=== PATIENT | male | born 1955 | race Caucasian/White ===

== ENCOUNTER → 2022-08-22 09:32 | Outpatient (BNVA) | payer MEDICARE, OTHER, SELFPAY | PROVIDERS: PCP Internal Medicine; Visit Provider Orthopaedic Surgery | DX: M75.42 Impingement syndrome of left shoulder (principal) | CPT/HCPCS: 99212 ==

== ENCOUNTER 2022-10-22 09:36 | Outpatient (AMB) | payer MEDICARE, OTHER, SELFPAY ==
--- NOTE | 2022-10-22 09:45 | MHC.OFFVIS ---
Intake Vital Signs 10/22/22 09:49 Height 6 ft Weight 225 lb BMI 30.5 Intake Visit Reasons: OV LT shld, dis cla exc, AC RTC 10/25/22DR Intake Note: Kirill is a 66 year old male who presents with complaints of progressively worsening left shoulder pain and weakness. He did undergo right shoulder surgery in 2014. He denies any pain in his right shoulder. He did injure his left shoulder several years ago while lifting a heavy object. Since that time his symptoms have gotten worse in spite of continued non operative treatments. He has done physical therapy for 12 weeks over the last 6 months which aggravated his pain. He has also tried Tylenol and anti-inflammatory medicines which gave him minimal relief. He has had multiple injections. The most recent injection gave him only temporary relief. The patient reports weakness when lifting his left hand above shoulder height. Allergies No Known Allergies Allergy (Verified 10/22/22 09:56) Medication List - Last Reconciled 10/22/22 by Kayden Reynaga MD hydromorphone 4 mg (2 x 2 mg) PO Q4H PRN PFSH Social History Current occupational status: retired Current occupation: rt hand Physical Exam Vital Signs: BMI result Body Mass Index 30.5 Const Other: Well-nourished well-developed very friendly male awake alert and oriented x3 in no acute distress Lungs clear to auscultation bilaterally with symmetric expansion Cardiovascular exam regular rate and rhythm Abdominal exam is soft nontender nondistended Extrem Other: Bilateral upper extremity examination shows good capillary refill, no skin lesions noted, normal sensation light touch Left shoulder examination shows decreased range of motion when compared to his right shoulder, 4+ out of 5 strength with supraspinatus testing, positive impingement signs, tenderness over his acromioclavicular joint, no instability Results Reviewed Results Reviewed: X-rays of the patient's left shoulder show severe acromioclavicular joint narrowing, a type 3 acromion, no acute bony abnormalities MRI of the patient's left shoulder show severe acromioclavicular joint narrowing, type 3 acromion, signal change within the supraspinatus tendon most likely due to rotator cuff tendinosis versus a small rotator cuff tear Assessment & Plan Assessment & Plan (1) Impingement syndrome of left shoulder: Code(s): M75.42 - Impingement syndrome of left shoulder Plan Mr. Moreira presents with progressively worsening left shoulder pain and weakness due to impingement syndrome, acromioclavicular joint arthritis and rotator cuff tendinosis versus a small rotator cuff tear. I had a lengthy discussion with the patient regarding the treatment options. At this point he has failed continued non operative treatments. The risks and benefits of left shoulder surgery were discussed at length with the patient. The patient wishes to proceed. Surgery will most likely involve left shoulder diagnostic arthroscopy with distal clavicle excision, acromioplasty and rotator cuff repair showed a full-thickness tear be found at the time of his surgery. The patient was given a prescription for Dilaudid at his preoperative appointment. I will see him back 2-3 weeks following his surgery for his 1st postoperative appointment. The patient will follow-up as instructed. Feel free to call me at any time should questions regarding his orthopedic management arise. I spent 22 minutes in reviewing the patient's records and imaging studies, seeing the patient and documenting in the medical record. Medications: New hydromorphone Partial Fill upon patient request. 4 mg (2 x 2 mg) PO Q4H PRN 40 tabs 0RF pain Coding Level of Care Code Est Pt Level 2 (75119) Diagnoses Impingement syndrome of left shoulder M75.42
[2022-10-22 09:49] VITALS: BMI 30.5
== END 2022-10-22 10:48 | disposition home or self-care (01) ==
PROVIDERS: PCP Internal Medicine; Visit Provider Orthopaedic Surgery
DX: M75.42 Impingement syndrome of left shoulder (principal)
CPT/HCPCS: 99212

== ENCOUNTER → 2022-10-22 09:36 | Outpatient (BNVA) | payer MEDICARE, OTHER, SELFPAY | PROVIDERS: PCP Internal Medicine; Visit Provider Orthopaedic Surgery | DX: M75.42 Impingement syndrome of left shoulder (principal) | CPT/HCPCS: 99212 ==

== ENCOUNTER 2022-10-25 05:56 | Day surgery (SDC) | payer MEDICARE, OTHER, SELFPAY ==
[2022-10-22 15:27] VITALS: BMI 30.5
--- NOTE | 2022-10-24 10:43 | P.CONAN_ITS ---
Documented by User: Christine Hollingsworth NP 10/24/22 10:43 HPI - Anesthesia Eval Consult details Narrative: 67yo M for Left Shoulder Arthroscopy, possible distal clavicle incision, possible rotator cuff repair PRN opioid PMFSH Active Problems Active Problems: All Active Problems (Updated 10/22/22 @ 15:26 by Dyan Baker RN) Impingement syndrome of left shoulder (Acute) Past Medical History Medical History No known health problems Surgical History Surgical History H/O colonoscopy Hx of shoulder surgery Social History Social History Are you a primary laboratory animal care veterinarian to a significant other at home: No Do you presently have visiting nurse or other home services: No Patient Tobacco Use Status: Never used Tobacco Use of substances other than those prescribed or required for medical reasons: No Have you been hit, kicked, punched, or otherwise hurt by someone within the past year? If so, by whom?: No Are you DNR?: No Advance Directives: No Advance Directives Information Provided: Yes (as above noted) Advance Directives on File: No Recently lost weight without trying: No Eating poorly because of decreased appetite: No Nutrition Risks: No Nutritional Risk Poor oral hygiene: No Current occupational status: retired Current occupation: rt hand Meds Allergies Allergy/AdvReac Type Severity Reaction Status Date / Time No Known Allergies Allergy Verified 10/22/22 09:56 Home Medications Medication Instructions Recorded Confirmed Last Taken Type ibuprofen 200 mg tablet 400 mg PO Q6H PRN Pain 10/22/22 10/22/22 10/24/22 History Exam Exam Date and Time: October 24, 2022 1043 Height,Weight and Vital Signs: Height 6 ft Weight 102.058 kg Assessment and Plan Assessment Anesthesia Assessment: Chart Reviewed Documented by User: Belen Figueredo MD 10/25/22 09:38 [facility] Past Medical History Medical History No known health problems Family History Family history of problems with anesthesia: No Surgical History Surgical History H/O colonoscopy Hx of shoulder surgery History of Problems with Anesthesia: No Social History Social History Are you a primary laboratory animal care veterinarian to a significant other at home: No Do you presently have visiting nurse or other home services: No Patient Tobacco Use Status: Never used Tobacco Use of substances other than those prescribed or required for medical reasons: No Have you been hit, kicked, punched, or otherwise hurt by someone within the past year? If so, by whom?: No Are you DNR?: No Advance Directives: No Advance Directives Information Provided: Yes (as above noted) Advance Directives on File: No Recently lost weight without trying: No Eating poorly because of decreased appetite: No Nutrition Risks: No Nutritional Risk Poor oral hygiene: No Current occupational status: retired Current occupation: rt hand Meds Allergies Allergy/AdvReac Type Severity Reaction Status Date / Time No Known Allergies Allergy Verified 10/22/22 09:56 Home Medications Medication Instructions Recorded Confirmed Last Taken Type ibuprofen 200 mg tablet 400 mg PO Q6H PRN Pain 10/22/22 10/22/22 10/24/22 History Exam Airway Mallampati Class: II TM Dist: >3cm Neck ROM: Full Heart: rrr Lungs: cta Assessment and Plan Assessment Anesthesia Assessment: Anesthesia Plan Discussed Final Anesthetic Review Family History of Problems with Anesthesia: No History of Problems with Anesthesia: No NPO: Yes ASA Class: II Final Preanesthetic Review: No Changes in Pt Med Stat, Meds/Allgs Chart Reviewed, Consent Obtained/Reviewed and Anes Risks/Benef Reviewed Patient Risk: Intermediate Procedure Risk: Intermediate Anesthetic Plan Anesthetic Plan: GA and Regional Block Disposition: Standard PACU
[2022-10-25] VITALS (7 sets, daily range): BP systolic 123–152; BP diastolic 62–88; PULSE 57–76; RESP 12–20; TEMP 36.1–36.9; O2SAT 96–98
[2022-10-25] MEDS: Lactated Ringers 1,000 ML 100 ML IVCONT (06:43)
--- NOTE | 2022-10-25 09:44 | PM.OP ---
Brief Operative Note Date of Service: 10/25/22 Pre-op diagnosis: Left shoulder impingement syndrome, left shoulder acromioclavicular joint arthritis, left shoulder adhesive capsulitis Post-op diagnosis: same Procedure: Left shoulder diagnostic arthroscopy with left shoulder arthroscopic distal clavicle excision, left shoulder arthroscopic acromioplasty, left shoulder arthroscopic anterior capsular release, left shoulder manipulation under anesthesia Implants: none Surgeon: Kayden Reynaga MD Anesthesia: GETA Was an Lap Winding Machine Operator used for this Procedure?: No Estimated blood loss (mL): 15 Pathology: none sent Condition: stable Disposition: PACU
--- NOTE | 2022-10-25 09:45 | W.PM.OPN ---
Operative Note Operative Note Date of Service: 10/25/22 Narrative: After the patient was identified as Kirill Moreira and his left shoulder was initialed by myself the patient was brought to the holding area where a left shoulder interscalene regional block was performed by the anesthesiologist in routine fashion. The patient was then brought to the operating room where general anesthesia was induced by the anesthesiologist in routine fashion. The patient was given 2 g of IV Ancef preoperatively for infection prophylaxis. Examination under anesthesia of the patient's left shoulder show decreased passive range of motion when compared to his right shoulder. His left shoulder had forward flexion to 140 degrees compared 170 degrees, external rotation to 30 compared to 60 degrees, and internal rotation to 40 degrees compared to 50 degrees. The patient was gently positioned in the beach chair position with all bony prominences well padded. The patient's left shoulder region and upper extremity were prepped and draped in sterile fashion. A formal time-out was completed. A #11 scalpel blade was used to make a posterior portal 2 cm inferior and 1 cm medial to the posterolateral corner of the acromion. Blunt trocar technique was used to enter the glenohumeral joint in routine fashion. An anterior portal was made just lateral to the coracoid process after proper positioning was confirmed using a spinal needle. Diagnostic arthroscopy showed minimal degenerative changes of the glenoid and humeral head articular surfaces. There was no evidence of full-thickness rotator cuff tearing. There was no evidence of injury to the biceps tendon or its insertion onto the glenoid. There was inflammation of the anterior joint capsule consistent with adhesive capsulitis. The ArthroCare Wand was then used to perform an anterior capsular release between the inferior border of the biceps tendon and the superior border of the subscapularis tendon. The arthroscope was then placed from the posterior portal into the subacromial space. A lateral portal was made 2 fingerbreadths lateral to the anterior lateral corner of the acromion. The ArthroCare Wand was used to ablate soft tissues along the undersurface of the acromion as well as to excise the coracoacromial ligament. There was a sharp spur along the undersurface of the acromion which was removed using the hooded bur. The arthroscope was then placed into the lateral portal and the acromioplasty was completed with the bur in the posterior portal using the posterior aspect of the acromion as a cutting block. The ArthroCare Wand was then brought in through the anterior portal and was used to ablate soft tissues along the acromioclavicular joint and distal clavicle. The posterior and superior ligamentous structures were left intact. A distal clavicle excision of 8 mm was performed using the fluted bur. Any remaining bursal tissue was removed using the arthroscopic shaver. The subacromial space was irrigated and then drained. All arthroscopic instruments were removed. A gentle manipulation under anesthesia was then performed. Full passive range of motion was easily obtained. The 3 portals were closed with 3-0 nylon interrupted suture. The subacromial space was injected with Marcaine. Dry sterile dressing was placed over all incisions. The patient's left upper extremity was placed into a sling. The patient was awoken and extubated in the operating room. The patient was transferred to the recovery room in stable condition.
[2022-10-25] MEDS: cefTRIAXone sodium 1 GM in 0.9 % Sodium Chloride 50 ML IV (11:07)
[2022-10-25] MEDS: ondansetron HCL 4 MG/2 ML VIAL IVPUSH (11:11)
--- NOTE | 2022-10-25 11:15 | PC.NURSE ---
patient iv right a/c placed for abx as per order of md. Reynaga and iv abx administered, zofran as well for nausea. When completed patient resting wnl. and discharged as per order.
== END 2022-10-25 12:10 | disposition home or self-care (01) ==
PROVIDERS: PCP Internal Medicine; Visit Provider Orthopaedic Surgery
PROC: (CPT 29805; principal; 2022-10-25 07:30)
DX: M75.42 Impingement syndrome of left shoulder (principal); M19.012 Primary osteoarthritis, left shoulder; M75.02 Adhesive capsulitis of left shoulder
CPT/HCPCS: 29824; 29825; 29826; J0171; J0690; J0696; J1100; J2250; J2405; J3010

== ENCOUNTER → 2022-10-25 05:56 | Outpatient (BNV) | payer MEDICARE, OTHER, SELFPAY | PROVIDERS: PCP Internal Medicine; Visit Provider Orthopaedic Surgery | DX: M75.32 Calcific tendinitis of left shoulder (principal); M19.012 Primary osteoarthritis, left shoulder; M75.42 Impingement syndrome of left shoulder | CPT/HCPCS: 29824; 29825; 29826 ==

== ENCOUNTER 2022-11-07 07:37 | Outpatient (REF) | payer MEDICARE, SELFPAY | END 2022-11-07 07:38 | disposition home or self-care (01) | LOC: HO.HOSX 07:37 | PROVIDERS: Visit Provider Orthopaedic Surgery | DX: Z13.89 Encounter for screening for other disorder (principal) ==

== ENCOUNTER 2022-11-07 10:25 | Outpatient (AMB) | payer MEDICARE, SELFPAY ==
--- NOTE | 2022-11-07 10:26 | MHC.OFFVIS ---
Intake Intake Visit Reasons: PO L Shoulder , poss DCE, ACP, RTC Rep. 10/25/22 Intake Note: Kirill is a 67 right hand dominant male who presents today for his post op appointment s/p left shoulder , poss DCE, ACP, RTC Rep. 10/25/22 DRKinsey Patient reports feeling a little sore. 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 He denies any fevers or chills. Allergies No Known Allergies Allergy (Verified 11/07/22 10:27) Medication List - Last Reconciled 11/07/22 by Kayden Reynaga MD hydromorphone 4 mg (2 x 2 mg) PO Q4H PRN ibuprofen 400 mg PO Q6H PRN PFSH Medical History No known health problems Surgical History H/O colonoscopy Hx of shoulder surgery Social History Are you a primary career technical education instructor to a significant other at home: No Do you presently have visiting nurse or other home services: No Patient Tobacco Use Status: Never used Tobacco Current occupational status: retired Current occupation: rt hand Physical Exam Extrem Other: Left shoulder examination shows that the surgical incisions are healing well, no erythema, almost full range of motion when compared to his right shoulder, mild discomfort with range of motion Assessment & Plan Assessment & Plan (1) Left shoulder pain: Code(s): M25.512 - Pain in left shoulder Plan Mr. Moreira is doing very well after undergoing right shoulder arthroscopic surgery 10/25/2022. His sutures were removed and Steri-Strips placed over his incisions. He will continue with his home stretching program. The do's and don'ts of lifting were discussed at length with the patient. He will follow up with me on an as-needed basis should his symptoms not plateau at an unacceptable level over the next few months. Feel free to call me at any time should questions regarding his orthopedic management arise. Coding Level of Care Code Global (88047) Diagnoses Left shoulder pain M25.512
== END 2022-11-07 11:18 | disposition home or self-care (01) ==
PROVIDERS: PCP Internal Medicine; Visit Provider Orthopaedic Surgery
DX: M25.512 Pain in left shoulder (principal)
CPT/HCPCS: 99024